=== PATIENT | female | born 1980 | race Caucasian/White ===

== ENCOUNTER → 2017-09-01 | Outpatient (CLI) | payer BC | LOC: LAB 16:05 → LAB SHORT 16:05 | DX: L01.00 Impetigo, unspecified (principal) | CPT/HCPCS: 87070; 87077; 87186; 87205 ==

== ENCOUNTER → 2018-04-20 | Outpatient (CLI) | payer BC ==
[2018-04-21 06:44] LABS: Candida species (DNA Probe) Negative (NEGATIVE); G. vaginalis (DNA Probe) Negative (NEGATIVE); T. vaginalis (DNA Probe) Negative (NEGATIVE)
== END | disposition home or self-care (01) ==
LOC: LAB 13:15 → LAB SHORT 13:15
PROVIDERS: Family Medicine
DX: N89.8 Other specified noninflammatory disorders of vagina (principal)
CPT/HCPCS: 87480; 87510; 87660

== ENCOUNTER → 2018-05-17 | Outpatient (CLI) | payer BC | END | disposition home or self-care (01) | LOC: PLD 13:38 → LAB SHORT 13:38 | DX: N76.2 Acute vulvitis (principal) | CPT/HCPCS: 88305 ==

== ENCOUNTER → 2018-06-28 | Outpatient (CLI) | payer BC | END | disposition home or self-care (01) | LOC: LAB SHORT 15:13 → LAB 15:13 | DX: R21 Rash and other nonspecific skin eruption (principal) | CPT/HCPCS: 87071; 87075; 87077; 87147; 87186; 87205 ==

== ENCOUNTER → 2018-07-04 | Outpatient (CLI) | payer BC | LOC: LAB SHORT 07:37 → PLD 07:37 | DX: R21 Rash and other nonspecific skin eruption (principal); L30.9 Dermatitis, unspecified | CPT/HCPCS: 88312; 88313 ==

== ENCOUNTER 2019-10-25 12:30 | Observation (INO) | payer BC ==
[~2019-10-25] VITALS: Ht 167.6 cm; Wt 92.4 kg
[2019-10-25] MEDS ORDERED: Hydroxychloroq200 MG PO (13:01)
[2019-10-25] MEDS ORDERED: DECARA1250 MC1 PO (13:01)
[2019-10-25] MEDS ORDERED: AMLODIPINE BESY10 MG PO (13:01)
--- NOTE | 2019-10-25 15:09 | NUR ---
Echocardiogram complete
[2019-10-25 17:11] LABS: Prothrombin Time Results 11.7 Sec (9.7-11.5)
--- NOTE | 2019-10-25 19:05 | NUR ---
ISAI VERFIED WITH KARAN TERRELL RN.
--- NOTE | 2019-10-26 05:30 | NUR ---
SHIFT SUMMARY NO ACUTE CHANGES THIS SHIFT. PT IS INDEPENDENT IN ROOM, AMBULATES WELL TO THE BATHROOM. SCDS APPLIED. NPO AT MIDNIGHT. PATIENT CALLS APPROPRIATELY. NO APPARENT DISTRESS OR NEEDS AT THIS TIME. WILL CONTINUE TO MONITOR UNTIL REPORT GIVEN TO DAY RN.
[2019-10-26 06:36] LABS: BASOPHILS ABSOLUTE AUTO 0.04 K/mm3 (0.00-0.23); BASOPHILS PERCENT AUTO 1 % (0-2); EOSINOPHILS ABSOLUTE AUTO 0.13 K/mm3 (0.00-0.68); EOSINOPHILS PERCENT AUTO 3 % (0-6); Hematocrit 38.8 % (33.0-51.0); Hemoglobin 12.9 g/dL (11.5-16.0); IMMATURE GRAN PERCENT AUTO 0 % (0-1); LYMPHOCYTES ABSOLUTE AUTO 1.61 K/mm3 (0.84-5.20); LYMPHOCYTES PERCENT AUTO 41 % (21-46); MONOCYTES ABSOLUTE AUTO 0.46 K/mm3 (0.16-1.47); MONOCYTES PERCENT AUTO 12 % (4-13); Mean Corpuscular HGB 33.6 pg (26.0-34.0); Mean Corpuscular HGB Conc 33.2 g/dL (31.5-36.5); Mean Corpuscular Volume 101 fL (80-100); Mean Platelet Volume 10.3 fL (9.1-12.4); NEUTROPHILS ABSOLUTE AUTO 1.69 K/mm3 (1.96-9.15); NEUTROPHILS PERCENT AUTO 43 % (41-73); Platelet Count 219 K/mm3 (150-400); RDW Coefficient Variation 11.9 % (11.7-14.2); RDW Standard Deviation 44.1 fL (35.1-46.3); Red Blood Cell Count 3.84 M/mm3 (3.80-5.20); White Blood Cell Count 3.93 K/mm3 (4.00-11.30)
[2019-10-26 06:55] LABS: Alanine Aminotransfer (ALT/SGP 37 U/L (12-78); Albumin, Blood 3.2 g/dL (3.4-5.0); Albumin/Globulin Ratio 0.9 (0.8-1.8); Alk Phos 67 U/L (50-136); Anion Gap 7 mmol/L (6-16); Aspartate Aminotrans (AST/SGOT 37 U/L (12-37); Bilirubin, Total 0.3 mg/dL (0.1-1.0); Blood Urea Nitrogen 5 mg/dL (8-24); Bun/Creatinine Ratio 8.9 (12.0-20.0); CO2, Blood 25 mmol/L (21-32); Calcium, Blood 8.2 mg/dL (8.5-10.1); Chloride, Blood 110 mmol/L (98-108); Cholesterol 173 mg/dL (50-200); Creatinine, Blood 0.56 mg/dL (0.40-1.00); Globulin, Blood 3.6 g/dL (2.2-4.0); Glomerular Filtration Rate >60 (60-); Glucose, Blood 94 mg/dL (70-99); HDL Cholesterol 43 mg/dL (>39); LDL/HDL RATIO Unable to Calculate; Low Density Lipoprotein Chol Unable to Calculate mg/dL (0-110); Potassium, Blood 3.6 mmol/L (3.5-5.5); Sodium, Blood 142 mmol/L (136-145); Total Protein, Blood 6.8 g/dL (6.4-8.2); Triglycerides 494 mg/dL (30-160); Very Low Density Lipoprot Chol Unable to Calculate mg/dL (6-32)
--- NOTE | 2019-10-26 11:40 | NUR ---
RECIEVED PT FROM MEDICAL FLOOR POST ANGIGRAPHY WITH TR BAND IN PLACE ON RIGHT WRIST. NO BLEEDING PRESENT AND PATIENT REPORTS NO NUMBNESS OR TINGLING IN RIGHT HAND. PT REPORTS NO PAIN. PT RECIEVED TEACHING ABOUT THE TR BAND AND LIMITATIONS TO HER RIGHT ARM AND TO KEEP THE BRACE ON. PT AMBULATES INDEPENDENTLY. CALL LIGHT IS IN REACH AND BED IS IN LOW POSITION.
--- NOTE | 2019-10-26 11:42 | NUR ---
PT TRANSFER PT TRANSFERRED TO COMMUNITY OUTREACH DIRECTOR FOR ANGIOGRAM PROCEDURE. CALLED REPORT TO PCU-9 AND TRANSFERRED CARE OF PT TO FAUSTINO SKINNER RN.
--- NOTE | 2019-10-26 15:50 | NUR ---
STARTED REMOVING TR BAND 2ML AT 1400, FINISHED AND REMOVED BAND AT 1540, NO BLEEDING PRESENT. PATIENT REPORTS NO PAIN OR NUMBNESS IN HER RIGHT HAND OR ARM. PT TEACHING HAS BEEN PROVIDED ON CONDITION AND POST PROCEDURE LIMITATIONS. PT ATE LUNCH, IS A&O, AND AMBULATES INDEPENDENTLY. IS IN THE ROOM WITH HER. DR. ALFARO WANTS FLUIDS FINISHED WIDE OPEN AND WILL PUT IN ORDERS FOR DISCHARGE. PT HAS CALL LIGHT IN REACH AND BED IN LOW POSITION.
--- NOTE | 2019-10-26 17:00 | NUR ---
TR BAND REMOVED AT 1400 NO BLEED PRESENT OCCLUSIVE DRESSING PLACED. CT CAME BACK NEGATIVE FOR CLOTS AND DR. ALFARO EXPLAINED RESULTS TO THE PT AND HER AND PUT IN DISCHARGE ORDERS. PT RECIEVED WRITTEN AND VERBAL DISCHARGE INSTRUCTIONS AND STATED THAT SHE UNDERSTOOD THE INSTRUCTIONS AND HAD NO QUESTIONS. BOTH IVS REMOVED WITH CATHETERS INTACT. PT TOOK ALL BELONINGS AND INSTRUCTIONS AND I WALKED HER OUT OF THE BUILDING.
== END 2019-10-26 17:00 | disposition home or self-care (01) ==
LOC: ER 12:30 → MEDS 12:31 → ER 16:45 → MEDS 16:55 → PCU 10-26 11:37
PROVIDERS: Emergency Medicine; ADMIT Internal Medicine
DX: R07.89 Other chest pain (principal); M32.9 Systemic lupus erythematosus, unspecified; I10 Essential (primary) hypertension; F17.200 Nicotine dependence, unspecified, uncomplicated; R79.89 Other specified abnormal findings of blood chemistry; Z79.899 Other long term (current) drug therapy
CPT/HCPCS: 36415; 71260; 80053; 80061; 84484; 85025; 85610; 85730; 86850; 86900; 86901; 93005; 93010; 93306; 93458; 96374; 99152; 99153; 99285-25; A9270-GY; C1769; C1894; J1644; J2250; J3010; J7030; J7050; Q9967

== ENCOUNTER 2019-12-15 05:47 | Emergency (ER) | payer BC ==
[~2019-12-15] VITALS: Ht 167.6 cm; Wt 90.7 kg
[~2019-12-15 05:47] MED LIST: AMLODIPINE BESY10 MG PO; DECARA1250 MC1 PO; Hydroxychloroq200 MG PO
[2019-12-15 06:38] LABS: BASOPHILS ABSOLUTE AUTO 0.05 K/mm3 (0.00-0.23); BASOPHILS PERCENT AUTO 1 % (0-2); EOSINOPHILS ABSOLUTE AUTO 0.12 K/mm3 (0.00-0.68); EOSINOPHILS PERCENT AUTO 2 % (0-6); Hemoglobin 12.6 g/dL (11.5-16.0); IMMATURE GRAN ABSOLUTE AUTO 0.01 K/mm3 (0.00-0.10); IMMATURE GRAN PERCENT AUTO 0 % (0-1); LYMPHOCYTES ABSOLUTE AUTO 1.55 K/mm3 (0.84-5.20); LYMPHOCYTES PERCENT AUTO 30 % (21-46); MONOCYTES PERCENT AUTO 10 % (4-13); Mean Corpuscular HGB 33.6 pg (26.0-34.0); Mean Corpuscular HGB Conc 34.1 g/dL (31.5-36.5); Mean Corpuscular Volume 99 fL (80-100); Mean Platelet Volume 10.3 fL (9.1-12.4); NEUTROPHILS ABSOLUTE AUTO 2.98 K/mm3 (1.96-9.15); NEUTROPHILS PERCENT AUTO 57 % (41-73); Platelet Count 321 K/mm3 (150-400); RDW Coefficient Variation 11.4 % (11.7-14.2); RDW Standard Deviation 41.4 fL (35.1-46.3); Red Blood Cell Count 3.75 M/mm3 (3.80-5.20); White Blood Cell Count 5.21 K/mm3 (4.00-11.30)
[2019-12-15 06:58] LABS: Alanine Aminotransfer (ALT/SGP 34 U/L (12-78); Albumin, Blood 3.7 g/dL (3.4-5.0); Albumin/Globulin Ratio 1.1 (0.8-1.8); Alk Phos 70 U/L (50-136); Anion Gap 7 mmol/L (6-16); Aspartate Aminotrans (AST/SGOT 17 U/L (12-37); Bilirubin, Total 0.2 mg/dL (0.1-1.0); Blood Urea Nitrogen 10 mg/dL (8-24); Bun/Creatinine Ratio 15.4 (12.0-20.0); CO2, Blood 27 mmol/L (21-32); Calcium, Blood 8.5 mg/dL (8.5-10.1); Chloride, Blood 108 mmol/L (98-108); Creatinine, Blood 0.65 mg/dL (0.40-1.00); Globulin, Blood 3.5 g/dL (2.2-4.0); Glomerular Filtration Rate >60 (60-); Glucose, Blood 98 mg/dL (70-99); Potassium, Blood 3.6 mmol/L (3.5-5.5); Sodium, Blood 142 mmol/L (136-145); Total Protein, Blood 7.2 g/dL (6.4-8.2); Troponin I <0.015 ng/mL (0.000-0.040)
[2019-12-15] MEDS ORDERED: PRED20 PO (07:16)
[2019-12-15] MEDS ORDERED: IBUP600 PO (07:17)
== END 2019-12-15 07:28 | disposition home or self-care (01) ==
LOC: ER 05:47
PROVIDERS: Emergency Medicine
DX: R07.9 Chest pain, unspecified (principal); Z87.39 Personal history of other diseases of the musculoskeletal system and connective tissue; I10 Essential (primary) hypertension; F17.200 Nicotine dependence, unspecified, uncomplicated; Z79.899 Other long term (current) drug therapy
CPT/HCPCS: 36415; 71046; 80053; 83690; 84484; 85025; 85379; 93005; 93010; 99285-25; J1885

== ENCOUNTER → 2020-02-24 | Outpatient (CLI) | payer BC ==
[~2020-02-24] MED LIST changes: +IBUP600 PO; +PRED20 PO
[2020-02-24 16:20] LABS: Appearance, Urine Clear (Clear); Bilirubin, Urine Neg (Neg); Blood, Urine Neg (Neg); Color, Urine Yellow (P-Yellow); Glucose Qualitative, Urine Neg (Neg); Ketones, Urine Neg (Neg); Leukocyte Esterase, Urine Neg (Neg); Nitrite, Urine Neg (Neg); Protein, Urine Neg (Neg); Urobilinogen, Urine NORM (Normal)
[2020-02-24 17:14] LABS: Protein, Urine Random 8.3 mg/dL (0.0-11.9); Protein/Creat Ratio, Ur Random 0.3
== END | disposition home or self-care (01) ==
LOC: LAB SHORT 09:15 → LAB 09:15
PROVIDERS: Internal Medicine
DX: I10 Essential (primary) hypertension (principal)
CPT/HCPCS: 81003; 82570; 84156

== ENCOUNTER 2023-10-13 07:18 | Day surgery (SDC) | payer BC ==
[~2023-10-13] VITALS: Ht 167.6 cm; Wt 79.7 kg
[~2023-10-13 07:18] MED LIST changes: +Bupivacaine 0.5% HCl 5 MG/ML 30MLVIAL ONE
[2023-10-13] MEDS ORDERED: CeFAZolin Sodium 2,000 MG VIAL ONE (07:44)
[2023-10-13] MEDS ORDERED: NS 50 ML IV ONE (07:44)
[2023-10-13] MEDS ORDERED: Lactated Ringer's 1,000 ML IV ONE ×2 (07:55→10:20)
[2023-10-13] MEDS ORDERED: Prinivil10 MG PO (08:02)
[2023-10-13] MEDS ORDERED: Midazolam HCl 1MG / ML 2ML Vial ONE (08:09)
[2023-10-13] MEDS ORDERED: FentaNYL Citrate 50 MCG/ML 2 ML Injection ONE (08:09)
--- NOTE | 2023-10-13 08:27 | NUR ---
10/13/23 0827 Valencia Falk TIMEOUT COMPLETED AT 0815 PRE-OPERATIVE BLOCK STARTED AT 0817 BLOCK COMPLETED 08
[2023-10-13] MEDS ORDERED: propofoL 20 ML IV ONE (08:30)
[2023-10-13] MEDS ORDERED: Ondansetron HCl 2 MG / ML 2ML Vial ONE (08:34)
[2023-10-13] MEDS ORDERED: Dexamethasone Sod Phos 10 MG/ML 1ML VIAL ONE (08:34)
[2023-10-13] MEDS ORDERED: Ketorolac Tromethamine 30mg Vial ONE (08:35)
[2023-10-13] MEDS ORDERED: Bupivacaine 0.5% HCl 5 MG/ML 30MLVIAL ONE (08:35)
[2023-10-13] MEDS ORDERED: Lidocaine 1%-Epineph 1:100000 20 ML MDV ONE (08:35)
--- NOTE | 2023-10-13 10:28 | NUR ---
10/13/23 1028 HEIDY SALAZAR PT DENIES NAUSEA AND PAIN. WARM ENOUGH. PT ENTERED PACU AWAKE AND TALKING
--- NOTE | 2023-10-13 10:51 | NUR ---
10/13/23 1051 HEIDY SALAZAR PT CURRENTLY DENIES PAIN AND NAUSEA. PT IN RECLINER DRINKING HER COFFEE
[2023-10-13] MEDS ORDERED: OxyCODONE 5 mg/Acetamin 325 mg TABLET ONE (11:10)
[2023-10-13 11:15] VITALS: BP 113/69
== END 2023-10-13 11:36 | disposition home or self-care (01) ==
LOC: ORSCSDS 07:18
PROVIDERS: Podiatrist Foot & Ankle Surgery
PROC: 0SGP04Z Fusion of Right Toe Phalangeal Joint with Internal Fixation Device, Open Approach (ICD-10-PCS; principal; 2023-10-13 08:45)
PROC: 0SGK04Z Fusion of Right Tarsometatarsal Joint with Internal Fixation Device, Open Approach (ICD-10-PCS; principal; 2023-10-13 08:45)
PROC: 0QSQ04Z Reposition Right Toe Phalanx with Internal Fixation Device, Open Approach (ICD-10-PCS; principal; 2023-10-13 08:45)
DX: M21.611 Bunion of right foot (principal); M20.41 Other hammer toe(s) (acquired), right foot; M21.621 Bunionette of right foot; I10 Essential (primary) hypertension; M32.9 Systemic lupus erythematosus, unspecified; Z79.899 Other long term (current) drug therapy
CPT/HCPCS: A9270; C1713; J0690; J1100; J1885; J2250; J2405; J2704; J3010